=== PATIENT | female | born 1955 | race Caucasian/White ===

== ENCOUNTER 2019-02-28 17:50 | Emergency (ER) | payer MEDICARE, OTHER ==
[~2019-02-28] VITALS: Wt 100.0 kg
[~2019-02-28 17:50] MED LIST: AMLO-145 PO; CHOL500010 PO; CLON-379 PO; DIGO125T PO; DOCU-216 PO; INSU100I27 SQ; INSU100V3; INSU100V3 SQ; LEVO50TA7 PO; METO-429 PO; PATI8.4P PO; REPA0.5T5 PO; SEVE800T23 PO; [UNRECOGNIZED DRUG - CODE] PO
[2019-02-28] MEDS ORDERED: SOD CHLORIDE 0.9% 1,000 ML IV ONE ×2 (19:00→20:30)
[2019-02-28 22:00] VITALS: BP 131/56; PULSE 68; RESP 18
== END 2019-02-28 22:19 | disposition home or self-care (01) ==
LOC: E/R 17:50
DX: E11.65 Type 2 diabetes mellitus with hyperglycemia (principal); E11.22 Type 2 diabetes mellitus with diabetic chronic kidney disease; N18.6 End stage renal disease; D53.9 Nutritional anemia, unspecified; I12.0 Hypertensive chronic kidney disease with stage 5 chronic kidney disease or end stage renal disease; E66.01 Morbid (severe) obesity due to excess calories; Z99.2 Dependence on renal dialysis; Z86.73 Personal history of transient ischemic attack (TIA), and cerebral infarction without residual deficits
CPT/HCPCS: 36415; 80048; 82803; 82962; 83735; 84100; 85025; 99284; J7030